=== PATIENT | male | born 1980 | race Caucasian/White ===

== ENCOUNTER 2016-12-09 10:22 | Inpatient (IN) | payer OTHER ==
[2016-12-08 13:52] VITALS: BMI 30.7
[2016-12-09] VITALS (13 sets, daily range): BP systolic 117–132; BP diastolic 67–87; PULSE 66–84; RESP 13–20; Ht 180.3 cm; Wt 101.1 kg
[~2016-12-09] VITALS: Ht 180.3 cm; Wt 101.1 kg
[~2016-12-09 10:22] MED LIST: CEFAZOLIN 2 GM/50 ML (PMX) 50 ML IVPB ONE; LACTATED RINGER'S 1,000 ML IV* SCH; PROPOFOL 200 MG INJ ONE
[2016-12-09] MEDS ORDERED: SUCCINYLCHOLINE CHLORIDE 100 MG/5 ML SYG IV ONE (10:53)
[2016-12-09] MEDS ORDERED: CEFAZOLIN 1 GM INJ ONE (10:53)
[2016-12-09] MEDS ORDERED: PROPOFOL 20 ML ONE (10:53)
[2016-12-09] MEDS ORDERED: ROCURONIUM 50 MG INJ ONE (10:53)
[2016-12-09] MEDS ORDERED: MIDAZOLAM 1 MG/ML 2 ML INJ ONE (10:54)
[2016-12-09] MEDS ORDERED: PHENYLephrine (100 MCG/ML) 5ML SYG ONE (10:57)
--- NOTE | 2016-12-09 11:43 | HPN ---
Date/Time of Note Date/Time of Note DATE: 12/09/16 TIME: 11:43 Interval H&P Admission Note Pt. seen H&P reviewed: No system changes AMARILYS WALKER PA-C Dec 09, 2016 11:43
[2016-12-09] MEDS ORDERED: POLYMYXIN/BACITRACIN 1L IRRIG ONE (11:48)
[2016-12-09] MEDS ORDERED: BUPIVACAINE 0.25%/EPI (SDV) 30 ML INJ ONE (11:48)
[2016-12-09] MEDS ORDERED: BUPIVACAINE 0.25% (MPF) 30 ML INJ ONE (11:48)
[2016-12-09] MEDS ORDERED: THROMBIN 5000 UNIT VIAL ONE (11:48)
[2016-12-09] MEDS ORDERED: SURGIFOAM POWDER 1 GM KIT ONE (11:48)
[2016-12-09] MEDS ORDERED: CA CHLORIDE 10% 10 ML SYRINGE ONE (11:48)
[2016-12-09] MEDS ORDERED: BISACODYL 10 MG SUPP PR PRN (12:00)
[2016-12-09] MEDS: CEFAZOLIN 1 GM/50 ML (PMX) 50 ML IVPB SCH ×2 (12:00→20:54)
[2016-12-09] MEDS ORDERED: HYDROmorphONE 1 MG/ML SYG IV PRN (12:00)
[2016-12-09] MEDS ORDERED: CYCLOBENZAPRINE 10 MG TAB PO PRN (12:00)
[2016-12-09] MEDS ORDERED: AL HYDROX/MG HYDROX/SIMETH 30 ML CUP PO PRN (12:00)
[2016-12-09] MEDS ORDERED: ZOLPIDEM 5 MG TAB PO PRN (12:00)
[2016-12-09] MEDS ORDERED: DIPHENHYDRAMINE 50 MG INJ IV PRN (12:00)
[2016-12-09] MEDS ORDERED: CEPASTAT LOZENGE MT PRN (12:00)
[2016-12-09] MEDS ORDERED: ONDANSETRON 4 MG INJ IV PRN ×2 (12:00→13:30)
[2016-12-09] MEDS ORDERED: NALOXONE (0.4 MG/ML) INJ IV PRN (12:00)
[2016-12-09] MEDS ORDERED: ACETAMINOPHEN 325 MG TAB PO PRN (12:00)
[2016-12-09] MEDS ORDERED: FENTAnyl 50 MCG/ML VIAL ONE (13:14)
[2016-12-09] MEDS ORDERED: ONDANSETRON 4 MG INJ ONE (13:19)
[2016-12-09] MEDS ORDERED: FAMOTIDINE 20 MG INJ ONE (13:20)
[2016-12-09] MEDS ORDERED: DEXAMETHASONE 4 MG/ML 1 ML INJ ONE (13:20)
[2016-12-09] MEDS ORDERED: GLYCOPYRROLATE 1 MG INJ ONE (13:27)
[2016-12-09] MEDS ORDERED: NEOSTIGMINE 3 MG/3 ML SYRINGE ONE (13:27)
[2016-12-09] MEDS ORDERED: HYDROmorphONE (0.2 MG/ML) 10ML SYG IV PRN ×2 (13:30)
[2016-12-09] MEDS ORDERED: MEPERIDINE 25 MG INJ IV PRN (13:30)
--- NOTE | 2016-12-09 14:28 | OPPN ---
Date/Time of Note Date/Time of Note DATE: 12/09/16 TIME: 14:22 Operative/Procedure Note Pre-Operative Diagnosis Right L5-S1 disc herniation Post-Operative Diagnosis Same Procedure Right L5-S1 lumbar microdiscectomy, use of operative microscope, lateral localizing film 2, intraoperative neuro monitoring (1.5 hours) , epidural injection via catheter Surgeon: ROMEO LI MD Electronic Console Display Operator: AMARILYS WALKER PA-C Anesthesiologist: MIGUELITO CLEMONS DO Findings See dictation Implants/Grafts: Not applicable Estimated blood loss: 10 - 50 ml's Drains: Not applicable Specimens L5-S1 disc Complications: None Anesthesia type: general ROMEO LI MD Dec 09, 2016 14:28
[2016-12-09] MEDS: HYDROmorphONE 0.2 MG/ML PCA IV SCH ×2 (14:48→20:47)
--- NOTE | 2016-12-09 14:53 | RADRPT ---
PROCEDURE: XR Lumbar Spine one view. CLINICAL INDICATION: Low back pain. Intraoperative. TECHNIQUE: Prone portable cross-table lateral. COMPARISON: Prior study done earlier the same day. FINDINGS: Posterior surgical instruments are present overlying the lower lumbosacral spine. IMPRESSION: 1. Intraoperative imaging as described above. RPTAT: QQ .Vazquez Zee MD, MD Date Time Electronically viewed and signed by .Vazquez Zee MD, on 12/09/2016 14:52 .R/
--- NOTE | 2016-12-09 14:53 | RADRPT ---
PROCEDURE: XR Lumbar Spine one view. CLINICAL INDICATION: Low back pain. Intraoperative. TECHNIQUE: Prone portable cross-table lateral. COMPARISON: No prior studies are available for comparison. FINDINGS: There posterior needle marker is overlying the lower lumbosacral spine. IMPRESSION: 1. Intraoperative imaging as described above. RPTAT: QQ .Vazquez Zee MD, MD Date Time Electronically viewed and signed by .Vazquez Zee MD, on 12/09/2016 14:52 .R/
[2016-12-09] MEDS: HYDROmorphONE (0.2 MG/ML) 10ML SYG IV PRN ×2 (14:59→15:37)
--- NOTE | 2016-12-09 16:55 | OPR ---
DATE OF OPERATION: 12/09/2016 PREOPERATIVE DIAGNOSIS: Right L5 to S1 disk herniation with radiculopathy. POSTOPERATIVE DIAGNOSIS: Right L5 to S1 disk herniation with radiculopathy. PROCEDURE: 1. Right L5 to S1 hemilaminotomy, partial medial facetectomy and foraminotomy. 2. Right L5 to S1 lumbar microdiskectomy. 3. Lateral localizing film x2. 4. Intraoperative neuromonitoring (1.5 hours). 5. Use of operative microscope. 6. Epidural injection via catheter. PRIMARY SURGEON: Kash Walden MD SLOT FLOOR SUPERVISOR: LUIS Crisostomo NEED FOR TEST HOLE DRILLER: During this spinal surgical procedure, my ophthalmic surgical assistant was used to retrac t and protect the spinal nerves and dural sac. My ophthalmic surgical assistant also employed the suction catheters to evacuate blood from the surgical field to improve visualization of the neural structures. The chari tant was medically necessary to facilitate the completion of the surgery in a safe and expeditious m carley. [facility] regulations, as well as hospital bylaws, preclude the use of non-license d health care personnel, such as operating room technicians, to perform these functions. FINDINGS: Neuromonitoring at the start of the case revealed right L5 amplitude down 30%, right S1 a mplitude down 50%, left S1 amplitude down 30%. At the end of the case, nerve signals returned to no rmal. ESTIMATED BLOOD LOSS: 40 mL. DRAINS: None. SPECIMENS: L5 to S1 disk. COMPLICATIONS OF PROCEDURES: None. ANESTHESIOLOGIST: Tex Gonzalez DO TYPE OF ANESTHESIA: General. INDICATIONS FOR PROCEDURE: This is a 36-year-old gentleman with bilateral lumbosacral radiculopathy in the setting of a disk herniation. He had failed nonoperative measures; therefore, I recommended proceeding with the above-mentioned surgery. Preoperatively, we discussed the risks, benefits, and alternatives. He understood and wished to proceed. DESCRIPTION OF PROCEDURE IN DETAIL: The patient was identified in the preoperative holding area, [facility], taken to the operating room, where he was successfully placed under general an esthesia. Neuromonitoring leads were placed, sequential compression devices were applied. Neuromon itoring was utilized during the procedure for 1.5 hours to include SSEP, MEP, and EMG. This was per formed by [employer]. Start time was 12:15 p.m., closure time was 2:20 p.m. The patient was placed on the operating table in prone position over a Tavares frame. All bony prominences were well padded. The back was then prepped and draped in the usual sterile fashion. Spinal needles were pl aced and lateral localizing films obtained to confirm the correct levels. I then injected the travon nahun musculature with 0.25% Marcaine and epinephrine. An incision was then made over the L5 to S1 level. Incision was taken down to dorsal fascia, which was incised with Bovie cautery. I then subperiosteally dissected the right L5 lamina. A Kerrison w as placed in what was felt to be the L5 lamina and a Blanca retractor was placed and lateral localiz ing films obtained to confirm the correct levels. Once this was confirmed, microscope was brought i n and a right-sided hemilaminotomy was performed. Ligamentum flavum was then sharply dissected. Ep idural lipomatosis was identified and removed. I then identified the S1 nerve root. My ophthalmic surgical assistant r etracted this medially. I then identified the annulus, made an annulotomy followed by diskectomy. Once this was completed, nerve signals returned to normal. I irrigated the wound. Hemostasis was a chieved with Surgifoam and bipolar cautery. Epidural catheter was passed through which I injected 1 00 mcg of fentanyl. Peripheral blood was drawn by the anesthesiologist and spun down using the [employer] device. I took the platelet-poor plasma mixed this with thrombin and injected this over the du ra for hemostatic purposes. Microscope was taken off the field, retractors were removed. I closed the deep fascia with #1 Vicryl stitch. I closed the subcutaneous tissue with 2-[address] itch. A 4-0 Monocryl closure was then performed. Dermabond was then applied. The patient was awak ened from anesthesia and taken to recovery in stable condition. Lap, sponge, and instrument counts were correct x2. There were no apparent complications during the procedure. The patient will be admitted to the orthopedic [facility] for routine postoperative care to include pain c ontrol, neurovascular checks, antibiotics, and physical therapy. Dictated By: KASH SMITH/TEN Conf#: [id number] DID#: [id number]
[2016-12-09] MEDS: D5W-0.45 NACL + KCL 20 MEQ 1,000 ML IV SCH ×2 (17:24→21:38)
--- NOTE | 2016-12-09 19:43 | CONS ---
DATE OF ADMISSION: 12/09/2016 DATE OF CONSULTATION: TYPE OF CONSULTATION: Medical. Thank you, Dr. Walden, for asking me to participate in medical management of this patient. HISTORY OF PRESENT ILLNESS: This 36-year-old man is now postop a lumbar spine surgery. I was asked to see the patient because of some postop vomiting. 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 He was on a scissor lift when the lift tipped over. He jumped at an angle and landed on his left side onto concrete. He lost consciousness afte r the fall and was transferred to [facility] trauma [place]. He was diagnosed with a fracture of the left orbit for which he had surgery, and he had a fractured and torn ligament in his right ankle. After he started walking, he developed right low back pain that radiated into his right buttock, and then he developed some bilateral leg numbness. He had a 10 mm herniation at the L5-S1 level. He underwe nt surgery today by Dr. Walden which included a right L5-S1 hemilaminectomy, partial medial facet ectomy and foraminotomy. The patient is now awake and alert. He feels well except he did have an e pisode of vomiting before I saw him this evening. He denies any abdominal pain. PAST MEDICAL HISTORY: Essentially unremarkable. MEDICATIONS: He does not take any chronic medications. PAST SURGICAL HISTORY: Fracture surgery of the left orbit. He had an appendectomy. SOCIAL HISTORY: The patient has never smoked. He drinks alcohol socially. ALLERGIES: HE HAS NO KNOWN DRUG ALLERGIES. PHYSICAL EXAMINATION: GENERAL: At this time reveals a well-developed man in no apparent distress. VITAL SIGNS: Temperature 97.5, pulse is 74, respirations 18, blood pressure 120/81, O2 saturation 9 9% on 2 L nasal cannula. HEAD: Normocephalic. EYES: Extraocular muscles intact. NOSE AND MOUTH: Normal. NECK: Supple. No neck vein distention. LUNGS: Clear to auscultation. HEART: Regular rhythm. No murmurs, gallops or rubs. ABDOMEN: Soft, nontender. No masses or megaly. EXTREMITIES: No peripheral edema. IMPRESSION: This patient is stable postoperative a lumbar spine surgery. He did have some nausea w ith vomiting earlier. This has resolved and is probably related to the anesthesia he received durin g his surgery. His vital signs are stable, and he seems comfortable. PLAN: 1. Check labs in the morning. 2. Postop lumbar spine surgery protocol. 3. I will follow the patient along with you. Dictated By: JASWINDER BREWER MD, ND/TEN Conf#: [id number] DID#: [id number]
[2016-12-09] MEDS: DOCUSATE SODIUM 100 MG CAP PO SCH (20:54)
[2016-12-10 00:13] VITALS: BP 138/86; RESP 18
[2016-12-10] MEDS: HYDROmorphONE 0.2 MG/ML PCA IV SCH (02:35)
[2016-12-10] MEDS: CEFAZOLIN 1 GM/50 ML (PMX) 50 ML IVPB SCH (03:32)
[2016-12-10] MEDS: D5W-0.45 NACL + KCL 20 MEQ 1,000 ML IV SCH (03:33)
[2016-12-10 05:54] LABS: EOSINOPHILS % 0.1 % (0.0-7.0); HEMATOCRIT 40.5 % (42.0-52.0); HEMOGLOBIN 14.1 g/dl (14.0-18.0); LYMPHOCYTES # 1.8 10^3/ul (0.8-2.9); LYMPHOCYTES % 12.3 % (15.0-51.0); MEAN CORPUSCULAR HEMOGLOBIN 30.5 pg (29.0-33.0); MEAN CORPUSCULAR HGB CONC 34.8 g/dl (32.0-37.0); MEAN CORPUSCULAR VOLUME 87.6 fl (82.0-101.0); MEAN PLATELET VOLUME 8.5 fl (7.4-10.4); MONOCYTE # 0.8 10^3/ul (0.3-0.9); MONOCYTES % 5.4 % (0.0-11.0); NEUTROPHILS % 82.2 % (39.0-77.0); PLATELET COUNT 340 10^3/UL (140-440); RED BLOOD COUNT 4.62 10^6/ul (4.70-6.10); RED CELL DISTRIBUTION WIDTH 13.4 % (11.5-14.5); UNCORRECTED WBC 14.6 10^3/ul (4.8-10.8); WHITE BLOOD COUNT 14.6 10^3/ul (4.8-10.8)
[2016-12-10 05:57] LABS: CONDITION 1
[2016-12-10 07:00] VITALS: BP 123/83; RESP 20
[2016-12-10 07:16] LABS: POTASSIUM 4.2 mmol/L (3.5-5.1)
[2016-12-10 07:19] LABS: CREATININE 0.67 mg/dl (0.61-1.24); MAGNESIUM 1.9 mg/dl (1.7-2.5)
[2016-12-10] MEDS: DOCUSATE SODIUM 100 MG CAP PO SCH (08:45)
[2016-12-10] MEDS ORDERED: HYDROCODONE/APAP (10/325) TAB PO ONE (09:30)
--- NOTE | 2016-12-10 11:19 | PN ---
Date/Time of Note Date/Time of Note DATE: 12/10/16 TIME: 11:16 Assessment/Plan Lines/Catheters IV Catheter Type (from Nrsg): Peripheral IV Harper in Place (from Nrsg): No Assessment/Plan Assessment/Plan patient stable for D/C from ortho perspective walker per PT recommendation D/C home when cleared by PT Subjective 24 Hr Interval Summary patient doing well reports improvement in right buttock pain, left foot N/T ambulating well with PT Exam/Review of Systems Vital Signs Vitals Vital Signs Date Time Temp Pulse Resp B/P Pulse Ox O2 Delivery O2 Flow Rate FiO2 12/10/16 09:49 19 12/10/16 07:00 98.6 78 123/83 94 12/09/16 20:00 Nasal Cannula 2.0 Intake and Output 12/09/16 12/09/16 12/10/16 15:00 23:00 07:00 Intake Total 1000 ml 500 ml 2090 ml Output Total 40 ml 500 ml 600 ml Balance 960 ml 0 ml 1490 ml Exam Free Text/Dictation left TA, EHL 4+/5 right TA, EHL 4-/5 sensation intact incision c/d/i Results Result Diagram: 12/10/16 0500 12/10/16 0500 AMARILYS WALKER PA-C Dec 10, 2016 11:18
--- NOTE | 2016-12-10 12:51 | CONS ---
Date/Time of Note Date/Time of Note DATE: 12/10/16 TIME: 12:48 Assessment/Plan Assessment/Plan Chief Complaint/Hosp Course 1. he is 1 day post op lumbar spine surgery well . He can be discharged to home today . Problems: Consultation Date/Type/Reason Admit Date/Time Dec 09, 2016 at 10:22 Initial Consult Date Type of Consultation: medicine 24 HR Interval Summary Free Text/Dictation He is 1 day post op a lumbar spine surgery and doing well . Constitutional: improved, no complaints Exam/Review of Systems Vital Signs Vitals Vital Signs Date Time Temp Pulse Resp B/P Pulse Ox O2 Delivery O2 Flow Rate FiO2 12/10/16 09:49 19 12/10/16 07:00 98.6 78 123/83 94 12/09/16 20:00 Nasal Cannula 2.0 Intake and Output 12/09/16 12/09/16 12/10/16 15:00 23:00 07:00 Intake Total 1000 ml 500 ml 2090 ml Output Total 40 ml 500 ml 600 ml Balance 960 ml 0 ml 1490 ml Exam Constitutional: alert, oriented, well developed Psych: nl mood/affect, no complaints Respiratory: clear to auscultation, normal air movement Cardiovascular: nl pulses, regular rate and rhythm Musculoskeletal: nl extremities to inspection Results Result Diagram: 12/10/16 0500 12/10/16 0500 Results 24 hrs Laboratory Tests Test 12/10/16 05:00 Anion Gap 17 H Basophils # 0.0 Basophils % 0.0 Blood Urea Nitrogen 10 Calcium Level 9.0 Carbon Dioxide Level 23 Chloride Level 102 Creatinine 0.67 Eosinophils # 0.0 Eosinophils % 0.1 Glucose Level 123 Hematocrit 40.5 L Hemoglobin 14.1 Lymphocytes # 1.8 Lymphocytes % 12.3 L Magnesium Level 1.9 Mean Corpuscular Hemoglobin 30.5 Mean Corpuscular Hemoglobin Concent 34.8 Mean Corpuscular Volume 87.6 Mean Platelet Volume 8.5 Monocytes # 0.8 Monocytes % 5.4 Neutrophils # 12.0 H Neutrophils % 82.2 H Nucleated Red Blood Cells # 0.0 Nucleated Red Blood Cells % 0.0 Platelet Count 340 Potassium Level 4.2 Red Blood Count 4.62 L Red Cell Distribution Width 13.4 Sodium Level 138 White Blood Count 14.6 H Medications Medications Current Medications Potassium Chloride/Dextrose/ Sod Cl (D5-1/2ns + KCl 20 Meq) 1,000 ml @ 100 mls/ hr Q10H IV Last administered on 12/10/16 03:33; Admin Dose 100 MLS/HR; Start 12/09/16 at 11:38 Acetaminophen/ Hydrocodone Bitart ([place] ()) 1 tab Q4H PRN PO PAIN LEVEL 1-5; Start 12/10/16 at 13:30 Acetaminophen/ Hydrocodone Bitart ([place] (325)) 2 tab Q4H PRN PO PAIN LEVEL 6-10 Last administered on 12/10/16 12:46; Admin Dose 2 TAB; Start 12/10/16 at 13:30 Hydromorphone HCl (Dilaudid) 0.2 mg Q1H PRN IV BREAKTHROUGH PAIN; Start at 12:00 Ondansetron HCl (Zofran Inj) 4 mg Q6H PRN IV NAUSEA AND/OR VOMITING Last administered on 12/10/16 05:55; Admin Dose 4 MG; Start 12/09/16 at 12:00 Bisacodyl (Dulcolax Supp) 10 mg DAILY PRN [place] CONSTIPATION; Start 12/09/16 at 12 :00 Docusate Sodium (Colace) 100 mg BID PO Last administered on 12/10/16 08:45; Admin Dose 100 MG; Start 12/09/16 at 21:00 Al Hydrox/Mg Hydrox/Simethicone (Mag-Al Plus) 15 ml Q6H PRN PO CONSTIPATION/ DYSPEPSIA; Start 12/09/16 at 12:00 Acetaminophen (Tylenol Tab) 650 mg Q4H PRN PO AVALOS OR TEMP GREATER THAN 101.3F; Start 12/09/16 at 12:00 Cyclobenzaprine HCl (Flexeril) 10 mg TID PRN PO MUSCLE SPASMS; Start 12/09/16 at 12:00 Phenol (Cepastat Lozenge) 1 lozenge PRN PRN MT SORE THROAT Last administered on 12/10/16 05:55; Admin Dose 1 LOZENGE; Start 12/09/16 at 12:00 Diphenhydramine HCl (Benadryl) 25 mg Q6H PRN IV ITCHING; Start 12/09/16 at 12: 00 Naloxone HCl (Narcan) 0.2 mg Q2M PRN IV RR 8 BREATHS/MIN OR LESS; Start at 12:00 Miscellaneous Information 1. Hold CHIEF BUSINESS OFFICER at 1,000... CHIEF BUSINESS OFFICER IV ; Start 12/09/16 at 12: 00 JASWINDER BREWER MD Dec 10, 2016 12:51
--- NOTE | 2016-12-10 12:53 | PDOCDIS ---
Discharge Instructions CONDITION Patient Condition: Good ACTIVITY: Activity Restrictions: Slowly Increase Activity Avoid heavy lifting Do not Drive Bathing Restrictions: Shower FOLLOW UP/APPOINTMENTS Appointments JASWINDER Alfaro MD Dec 10, 2016 12:53
[2016-12-10] MEDS ORDERED: HYDROCODONE/APAP (10/325) TAB PO PRN ×2 (13:30)
--- NOTE | 2016-12-10 18:54 | DS ---
DATE OF ADMISSION: 12/09/2016 DATE OF DISCHARGE: 12/10/2016 ADMITTING DIAGNOSIS: Disk herniation. DISCHARGE DIAGNOSIS: Disk herniation. PROCEDURE: The patient was taken to the operating room on 12/09/2016 underwent lumbar diskectomy. HOSPITAL COURSE: The patient was admitted to the orthopedic [facility] after undergoing above procedure. His postoperative course was uncomplicated. By postoperative day 1, he was deemed stable for disch arge with followup arranged with the undersigned. Dictated By: ROMEO SMITH/TEN Conf#: [id number] DID#: [id number]
== END 2016-12-10 14:20 | disposition home or self-care (01) | DRG 520 ==
LOC: REC 10:22 → MS1 16:00
PROVIDERS: ADMIT Specialist; ATTEND Specialist
PROC: 0SB40ZZ Excision of Lumbosacral Disc, Open Approach (ICD-10-PCS; principal; 2016-12-09 12:00)
DX: M51.17 Intervertebral disc disorders with radiculopathy, lumbosacral region (principal)
CPT/HCPCS: 72020; 80048; 83735; 85025; 86999; 97116; 97162; 97530; J0330; J0690; J1100; J1170; J2250; J2370; J2405; J2710; J3010; J3480